=== PATIENT | female | born 2005 | race Caucasian/White ===

== ENCOUNTER → 2025-05-30 | Outpatient (REF) | payer OTHER ==
[2025-05-30 12:16] LABS: Trichomonas vaginalis (AMP) NOT DETECTED (NEGATIVE)
[2025-05-30 12:40] LABS: GC DNA AMPLIFICATION NEGATIVE (NEGATIVE)
== END ==
LOC: M SFHCWAGY 10:21
PROVIDERS: ATTEND Nurse Practitioner Family
DX: Z34.80 Encounter for supervision of other normal pregnancy, unspecified trimester (principal)

== ENCOUNTER → 2025-06-04 | Outpatient (CLI) | payer OTHER | LOC: M PLALAB 14:18 | PROVIDERS: ATTEND Nurse Practitioner Family | DX: Z34.80 Encounter for supervision of other normal pregnancy, unspecified trimester (principal); Z3A.00 Weeks of gestation of pregnancy not specified ==

== ENCOUNTER 2025-06-08 14:08 | Emergency (ER) | payer OTHER ==
[~2025-06-08] VITALS: Ht 152.4 cm; Wt 76.1 kg
[2025-06-08] MEDS ORDERED: LEXA1TAB (14:31)
[2025-06-08] MEDS ORDERED: ONDA-282 (14:31)
[2025-06-08] MEDS ORDERED: PREN1TAB11 PO (14:31)
[2025-06-08 14:55] LABS: BASO # 0.0 10^3/uL (0.0-0.2); BASO % 0.5 % (0.0-1.0); EOS # 0.1 10^3/uL (0.0-0.5); EOS % 0.6 % (0.0-3.0); LYMPH # 1.9 10^3/uL (1.5-5.0); LYMPH % 25.1 % (24.0-44.0); MONO # 0.6 10^3/uL (0.0-0.8); MONO % 7.7 % (2.0-8.0); NEUTROPHILS # 5.1 10^3/uL (1.5-8.5); NEUTROPHILS % 65.8 % (36.0-66.0); PLATELET COUNT, AUTOMATED 336 10^3/uL (150-450)
[2025-06-08 15:01] LABS: KETONE, URINE AUTO RFX 1+ mg/dL (NEGATIVE); LEUKOCYTE ESTERASE UR AUTO RFX TRACE (NEGATIVE); MUCUS, URINE RFX MODERATE (NEGATIVE); NITRITE, URINE AUTO RFX NEGATIVE (NEGATIVE); RBC, URINE AUTO RFX 2 /HPF (0-3); SQUAM EPITHELIAL CELL UR AURFX 2 /HPF (0-6); WBC, URINE AUTO RFX 2 /HPF (0-3)
[2025-06-08 15:26] LABS: ALT/SGPT 19 U/L (7.0-40); AST/SGOT 22 U/L (<34); CALCIUM LEVEL 9.2 MG/DL (8.5-10.1); CARBON DIOXIDE LEVEL 23 MMOL/L (20-31); CHLORIDE LEVEL 103 MMOL/L (98-107); CREATININE FOR GFR 0.58 MG/DL (0.55-1.30); GLOMERULAR FILTRATION RATE > 90.0 (>60); POTASSIUM SERUM 4.0 MMOL/L (3.5-5.1); SODIUM LEVEL 139 MMOL/L (136-145)
[2025-06-08] MEDS: NS (Normal Saline) 0.9% 1,000 ML IV ONE (16:51)
[2025-06-08] MEDS ORDERED: DICL10TA PO (18:31)
[2025-06-08] MEDS: PROMETHAZINE 25 MG TAB PO ONE (21:45)
[2025-06-08 21:53] VITALS: BP 90/55; TEMP 97.5; O2SAT 99
== END 2025-06-08 21:55 | disposition home or self-care (01) ==
LOC: M ED 14:08
DX: O21.0 Mild hyperemesis gravidarum (principal); N28.1 Cyst of kidney, acquired; Z88.1 Allergy status to other antibiotic agents; Z91.013 Allergy to seafood; Z79.899 Other long term (current) drug therapy; Z3A.11 11 weeks gestation of pregnancy
CPT/HCPCS: 76801; 80048; 80076; 81001; 83690; 84702; 85025; 87086; 96361; 96374; 99284; J2765

== ENCOUNTER → 2025-06-27 | Outpatient (CLI) | payer OTHER ==
[~2025-06-27] MED LIST: DICL10TA PO; LEXA1TAB; ONDA-282; PREN1TAB11 PO
[2025-06-27 15:45] LABS: ALT/SGPT 22 U/L (7.0-40); AST/SGOT 26 U/L (<34); CALCIUM LEVEL 9.3 MG/DL (8.5-10.1); CARBON DIOXIDE LEVEL 26 MMOL/L (20-31); CHLORIDE LEVEL 100 MMOL/L (98-107); CREATININE FOR GFR 0.54 MG/DL (0.55-1.30); GLOMERULAR FILTRATION RATE > 90.0 (>60); POTASSIUM SERUM 4.0 MMOL/L (3.5-5.1); SODIUM LEVEL 138 MMOL/L (136-145)
== END ==
LOC: M PLALAB 13:06
PROVIDERS: ATTEND Advanced Practice Midwife
DX: O99.412 Diseases of the circulatory system complicating pregnancy, second trimester (principal); Z3A.00 Weeks of gestation of pregnancy not specified

== ENCOUNTER → 2025-06-27 | Outpatient (CLI) | payer OTHER ==
[2025-06-27 15:39] LABS: PLATELET COUNT, AUTOMATED 375 10^3/uL (150-450)
[2025-06-27 16:12] LABS: HIV 1&2 SCREEN NEGATIVE (NEGATIVE)
[2025-06-27 16:21] LABS: HEPATITIS C VIRUS ABY INDEX < 0.02 INDEX (<0.8)
== END ==
LOC: M PLALAB 13:04
PROVIDERS: ATTEND Nurse Practitioner Family
DX: Z34.80 Encounter for supervision of other normal pregnancy, unspecified trimester (principal); Z3A.00 Weeks of gestation of pregnancy not specified